=== PATIENT | female | born 1955 | race Caucasian/White ===

== ENCOUNTER → 2017-06-22 | Outpatient (CLI) | payer OTHER ==
[~2017-06-22] MED LIST: FLUO20CA37 PO; HYZ/50125 PO; SIMV40TA2 PO; SYMIN160 INH; TOPI100T20 PO; TRAZ100T29 PO; TRAZ1TAB52 PO
== END | disposition home or self-care (01) ==
LOC: C.LABMFLN 08:39
PROVIDERS: ATTEND Family Medicine
DX: R39.9 Unspecified symptoms and signs involving the genitourinary system (principal)